=== PATIENT | female | born 1950 | race African-American/Black ===

== ENCOUNTER → 2021-01-25 | Outpatient (CLI) | payer MEDICARE ==
--- NOTE | 2021-01-25 15:04 | KCIC ---
INDICATION: Screening for osteopenia/osteoporosis. Postmenopausal evaluation. COMPARISON: None. TECHNIQUE: Bone densitometry was performed through the lumbar spine and proximal femur. IMPRESSION: Lumbar Spine: BMD: 1.18 T-Score: 1.2 Range: Normal Proximal Femur: BMD: 0.9 T-Score: -0.4 Range: Normal World Health Organization Criteria for Bone Density: T-Score: > -1.0: Normal Range < -1.0 to -2.5: Osteopenic Range < -2.5: Osteoporotic Range Electronically signed by: Kiet Benavides MD (01/25/2021 3:01 PM) [id number]
== END ==
LOC: KCIC DEXA 09:51
PROVIDERS: ATTEND Family Medicine
DX: M81.8 Other osteoporosis without current pathological fracture (principal); N95.1 Menopausal and female climacteric states
CPT/HCPCS: 77080

== ENCOUNTER → 2021-01-25 | Outpatient (CLI) | payer BC, MEDICARE ==
--- NOTE | 2021-01-25 17:12 | KCIC ---
BILATERAL SCREENING MAMMOGRAM History: Routine screening. Comparison: None. This is a baseline examination. Technique: Routine digital mammogram views were obtained. Findings: Breast Tissue Density B : There are scattered areas of fibroglandular density. There is a small bilobed mass in the subareolar left breast. There are no suspicious microcalcifications or architectural distortion. IMPRESSION: Small mass of the subareolar left breast. Recommend left breast ultrasound. BI-RADS Category 0: Incomplete: Need additional imaging evaluation. The images were reviewed with computer aided detection. Patient information is entered into the reminder system with a target due date for the next screening mammogram. Mammography is the most sensitive method for finding small breast cancers, but it does not detect the m all and is not a substitute for careful clinical examination. A negative mammogram does not negate a clinically suspicious finding and should not result in delay in biopsying a clinically suspicious a bnormality. "Our facility is accredited by the [employer] Mammography [employer]." Electronically signed by: Semaj Shafer MD (01/25/2021 5:10 PM) [email or web address]
== END ==
LOC: KCIC MAMMO 12:23
PROVIDERS: ATTEND Family Medicine
DX: Z12.31 Encounter for screening mammogram for malignant neoplasm of breast (principal)
CPT/HCPCS: 77067

== ENCOUNTER → 2021-02-01 | Outpatient (CLI) | payer BC, MEDICARE ==
--- NOTE | 2021-02-01 15:12 | KCIC ---
Left breast ultrasound: Reason for examination: Nodular density on screening mammogram. Comparison is made to mammographic exam dated 01/25/2021. Ultrasound examination was performed with attention to the retroareolar positions and at the axilla. There is ductal ectasia present in the retroareolar position. The area of ductal ectasia at the retro areolar 3:00 position appears to correspond with the area of mammographic concern. No solid or suspic ious nodules are seen in the left breast. No abnormal appearing lymph nodes are seen in the axilla. IMPRESSION: Ductal ectasia in the retroareolar position of the breast. No solid nodules are identified. Recommend routine mammographic follow-up. BI-RADS Category 2: Benign. "Our facility is accredited by the [employer] Mammography [employer]." This patient's information has been entered into a reminder system for the patient to be notified wit h the results of her examination and a target date for the next mammogram. Electronically signed by: Lexy Lucero MD (02/01/2021 3:10 PM) [id number]
== END ==
LOC: KCIC US 12:22
PROVIDERS: ATTEND Family Medicine
DX: N60.42 Mammary duct ectasia of left breast (principal); R92.8 Other abnormal and inconclusive findings on diagnostic imaging of breast
CPT/HCPCS: 76641

== ENCOUNTER → 2021-03-21 | Outpatient (CLI) | payer BC, MEDICARE ==
--- NOTE | 2021-03-21 08:21 | RAD ---
EXAM: Soft tissue ultrasound, left elbow. HISTORY: Mass/swelling at left elbow. COMPARISON: None. FINDINGS: Sonographic evaluation was performed at the site of concern along the left elbow. This reve als mild subcutaneous edema. There is no soft tissue mass or fluid collection. IMPRESSION: 1. Mild subcutaneous edema without a soft tissue mass or fluid collection. Recommend ongoing clinical follow-up of palpable foci. Electronically signed by: Refugio Joy MD (03/21/2021 8:19 AM) [id number]
== END ==
LOC: US 10:39
PROVIDERS: ATTEND Family Medicine
DX: R22.32 Localized swelling, mass and lump, left upper limb (principal)
CPT/HCPCS: 76881